=== PATIENT | male | born 1950 | race Caucasian/White ===

== ENCOUNTER 2019-03-25 08:43 | Day surgery (SDC) | payer MEDICARE, MEDICAID ==
[2019-03-25] VITALS (7 sets, daily range): BP systolic 94–120; BP diastolic 49–74
[~2019-03-25] VITALS: Ht 185.4 cm; Wt 60.6 kg
[~2019-03-25 08:43] MED LIST: HYDR-4353 PO; LORA0.5T PO
[2019-03-25] MEDS ORDERED: normal saline 1000ml 1,000 ML IV PRN (09:10)
[2019-03-25] MEDS ORDERED: ceFAZolin inj. 2,000 MG in normal saline soln 50 ML IV ONE (09:10)
[2019-03-25 10:31] LABS: ALBUMIN 3.1 G/DL (3.4-5.0); ANION GAP 8 (8-16); BLOOD UREA NITROGEN 22 MG/DL (7-18); BUN/CREATININE RATIO 21.6 (5.4-32.0); CALCIUM 8.6 MG/DL (8.5-10.1); CHLORIDE 101 MMOL/L (99-107); CREATININE 1.02 MG/DL (0.60-1.10); GLUCOSE 73 MG/DL (70-104); POTASSIUM 4.5 MMOL/L (3.5-5.1); SODIUM 136 MMOL/L (135-145); TOTAL CARBON DIOXIDE 26.6 MMOL/L (24-32); eGFR 72 ML/MIN
[2019-03-25 11:05] LABS: BASOPHILS % (AUTO) 0.4 % (0-1); EOSINOPHILS % (AUTO) 1.9 % (0-6); HEMATOCRIT 24.6 % (42.0-52.0); HEMOGLOBIN 8.8 g/dl (14.0-17.9); LYMPHOCYTES # (AUTO) 0.4 X10'3 (1.1-4.8); LYMPHOCYTES % (AUTO) 17.5 % (21-51); MEAN CORPUSCULAR HEMOGLOBIN 35.2 PG (27.0-31.0); MEAN CORPUSCULAR HGB CONC 35.8 g/dL (33.0-36.5); MEAN CORPUSCULAR VOLUME 98.3 FL (78-98); MONOCYTES # (AUTO) 0.3 X10'3 (0-0.9); MONOCYTES % (AUTO) 15.5 % (2-12); NEUTROPHILS # (AUTO) 1.3 X10'3 (1.8-7.7); NEUTROPHILS % (AUTO) 64.7 % (42-75); PLATELET COUNT 165 X10'3 (140-440); RED CELL DISTRIBUTION WIDTH 13.9 % (11.5-14.5)
[2019-03-25 11:52] LABS: PLATELET ESTIMATE NORMAL; TOTAL CELLS COUNTED 100
[2019-03-25] MEDS ORDERED: PROC5TAB56 PO (12:23)
[2019-03-25] MEDS ORDERED: iohexol 300 MG/1 ML 50ml polymer ONE (13:03)
[2019-03-25] MEDS ORDERED: glucagon, human recombinant 1mg kit IV ONE (13:10)
[2019-03-25] MEDS ORDERED: LIDOcaine 1%/PF 5ML 10 MG/ML VIAL SQ ONE (13:10)
[2019-03-25] MEDS ORDERED: fentaNYL/PF 50MCG/1 ML 2ML syringe IV PRN (13:10)
[2019-03-25] MEDS ORDERED: midazolam 2 mg/2 ml injection IV PRN (13:10)
[2019-03-25] MEDS ORDERED: midazolam 2 mg/2 ml injection ONE ×2 (13:29→13:53)
[2019-03-25] MEDS ORDERED: glucagon, human recombinant 1mg kit ONE (13:29)
[2019-03-25] MEDS ORDERED: fentaNYL/PF 50MCG/1 ML 2ML syringe ONE ×2 (13:30→13:53)
[2019-03-25] MEDS ORDERED: heparin sodium, porcine/PF 100unit/ml 5ML syringe IV ONE (16:25)
[2019-03-26] MEDS ORDERED: heparin sodium, porcine/PF 100unit/ml 5ML syringe IV SCH
== END 2019-03-25 16:30 | disposition home or self-care (01) ==
LOC: SSTAY O 08:43
PROVIDERS: ATTEND Radiology Diagnostic Radiology
DX: C12 Malignant neoplasm of pyriform sinus (principal); F41.9 Anxiety disorder, unspecified; F32.9 Major depressive disorder, single episode, unspecified; J44.9 Chronic obstructive pulmonary disease, unspecified; Z88.8 Allergy status to other drugs, medicaments and biological substances; Z98.890 Other specified postprocedural states; Z87.891 Personal history of nicotine dependence; F12.90 Cannabis use, unspecified, uncomplicated; Z72.89 Other problems related to lifestyle
CPT/HCPCS: 36415; 49440; 80048; 85025; 85610; 99152; 99153; C1713; J0690; J1610; J1642; J2250; J3010; J7030; Q9967; B4087

== ENCOUNTER 2019-04-28 13:26 | Outpatient (CLI) | payer MEDICARE, MEDICAID ==
[~2019-04-28 13:26] MED LIST changes: +BARIUM SULFATE 340 ML SUSP.RECON***PROCEDURE AREA ONLY**DONT ENTER PO ONE; -HYDR-4353 PO; +PROC5TAB56 PO
== END 2019-04-28 23:59 | disposition home or self-care (01) ==
LOC: RAD 13:26
PROVIDERS: ATTEND Radiology Radiation Oncology
DX: R13.12 Dysphagia, oropharyngeal phase (principal); J44.9 Chronic obstructive pulmonary disease, unspecified; Z87.891 Personal history of nicotine dependence; Z85.89 Personal history of malignant neoplasm of other organs and systems
CPT/HCPCS: 74230